=== PATIENT | male | born 1945 | race Caucasian/White ===

== ENCOUNTER 2017-01-01 16:23 | Inpatient (IN) | payer MEDICARE, OTHER ==
[~2017-01-01] VITALS: Ht 167.6 cm; Wt 90.2 kg
[2017-01-01 17:18] LABS: Basophils # (auto) 0 uL; Basophils % (auto) 0.6 % (0.0-2.0); CONDITION Y; Eosinophils # (auto) 0.1 uL; Eosinophils % (auto) 1.9 % (0.0-7.0); Hematocrit 51.7 % (41.0-53.0); Hemoglobin 17.2 g/dL (13.5-17.5); Lymphocytes # (auto) 1.5 uL; Lymphocytes % (auto) 18.5 % (10.0-50.0); Mean Corpuscular Hemoglobin 31.1 pg (28.0-32.0); Mean Corpuscular Hgb Conc. 33.3 g/dL (32.0-36.0); Mean Corpuscular Volume 93.4 fL (80.0-100.0); Mean Platelet Volume 7.7 fL (7.4-10.4); Monocytes # (auto) 0.7 uL; Monocytes % (auto) 9.2 % (0.0-12.0); Neutrophils # (auto) 5.6 uL; Neutrophils % (auto) 69.8 % (37.0-80.0); Platelet Count (auto) 215 10^3/uL (140-450); Red Cell Distribution Width 13.9 % (11.6-16.0); White Blood Cell 8.1 10^3/uL (4.4-10.8)
[2017-01-01 17:35] LABS: Anion Gap 12 (5-15); Aspartate Aminotransferase 36 U/L (15-37); BUN/Creatinine Ratio 18.3; Blood Urea Nitrogen 24 mg/dL (7-18); Calcium 8.8 mg/dL (8.5-10.1); Carbon Dioxide 23 mmol/L (21-32); Chloride 110 mmol/L (98-107); GFR African American 69 mL/min; GFR Non-African American 57 mL/min; Glucose 83 mg/dL (74-106); Magnesium 2.5 mg/dL (1.6-2.6); Potassium 3.8 mmol/L (3.5-5.1); Sodium 145 mmol/L (136-145)
[2017-01-01 17:40] LABS: Alkaline Phosphatase 72 U/L (45-117); Bilirubin, Total 0.3 mg/dL (0.2-1.0); Total Protein 7.7 g/dL (6.4-8.2)
[2017-01-01] MEDS ORDERED: MORPHINE SULFATE 4 MG/ML SYRG IV ONE (17:45)
[2017-01-01] MEDS ORDERED: ONDANSETRON HCL 4 MG/2 ML VIAL IV ONE (17:45)
[2017-01-01] MEDS ORDERED: NITROGLYCERIN 0.4 MG SL TAB SL PRN (18:00)
[2017-01-01] MEDS ORDERED: MORPHINE SULF INJ 2 MG/ML SYRINGE 1ML IV PRN ×2 (18:00→18:45)
[2017-01-01] MEDS ORDERED: TEMAZEPAM 15 MG CAP PO PRN (18:45)
[2017-01-01] MEDS ORDERED: HYDROcodone-ACET 5/325MG TAB PO PRN (18:45)
[2017-01-01] MEDS ORDERED: LORazepam 0.5 MG TAB PO PRN (18:45)
[2017-01-01] MEDS ORDERED: LACTULOSE 20Gm/30ML SOLN PO PRN (18:45)
[2017-01-01] MEDS ORDERED: ONDANSETRON HCL 4 MG/2 ML VIAL IV PRN (18:45)
[2017-01-01] MEDS: TAMSULOSIN HYDROCHLORIDE 0.4 MG CAP PO SCH (18:54)
[2017-01-01 19:03] LABS: Temperature: 22.7 C (20.0-25.0)
[2017-01-01 19:11] LABS: Cholesterol 154 mg/dL (< 200); HDL Cholesterol 34 mg/dL (40-59); LDL Cholesterol 96 mg/dL (< 100); Triglycerides 312 mg/dL (< 150)
[2017-01-01] MEDS ORDERED: ASPirin 81 mg TAB PO ONE (19:15)
[2017-01-01 19:19] LABS: INR 1.05 (0.9-1.15); Partial Thromboplastin Time 24.5 sec (22.64-33.71); Prothrombin Time 11.4 sec (9.37-12.3)
[2017-01-01 20:40] VITALS: BP 117/58
[2017-01-01] MEDS: ATORVASTATIN 20 MG TAB PO SCH (21:17)
[2017-01-01] MEDS: METOPROLOL TARTRATE 25 MG TAB PO SCH (21:19)
[2017-01-01 22:00] VITALS: BP 117/58
[2017-01-01] MEDS ORDERED: PRAZOSIN HCL 1 MG CAP PO ONE (22:00)
[2017-01-01] MEDS ORDERED: HYDR-4663 PO (23:49)
[2017-01-01] MEDS ORDERED: SERT-274 PO (23:49)
[2017-01-01] MEDS ORDERED: LISI40TA PO (23:49)
[2017-01-01] MEDS ORDERED: TRIA0.1P11 TOP (23:49)
[2017-01-01] MEDS ORDERED: METO-158 PO (23:49)
[2017-01-01] MEDS ORDERED: FINA5TAB4 PO (23:49)
[2017-01-01] MEDS ORDERED: PRA1C PO (23:49)
[2017-01-01] MEDS ORDERED: TAMS0.4C36 PO (23:49)
[2017-01-01] MEDS ORDERED: METH750T3 PO (23:49)
[2017-01-01] MEDS ORDERED: HYDR12.56 PO (23:49)
[2017-01-01] MEDS ORDERED: SIMV-13 PO (23:49)
[2017-01-02] VITALS (7 sets, daily range): BP systolic 81–122; BP diastolic 52–74
[2017-01-02 06:58] LABS: Anion Gap 10 (5-15); BUN/Creatinine Ratio 19.5; Blood Urea Nitrogen 29 mg/dL (7-18); Calcium 8.3 mg/dL (8.5-10.1); Carbon Dioxide 27 mmol/L (21-32); Chloride 106 mmol/L (98-107); GFR African American 60 mL/min; GFR Non-African American 49 mL/min; Glucose 91 mg/dL (74-106); Potassium 3.3 mmol/L (3.5-5.1); Sodium 143 mmol/L (136-145)
[2017-01-02 07:35] LABS: Urine Bilirubin Negative (Negative); Urine Blood Negative /uL (Negative); Urine Color Yellow (Yellow); Urine Glucose Normal (Normal); Urine Hyaline Cast MANY /lpf (0 - 2); Urine Ketone TRACE (Negative); Urine Mucus FEW (None Seen); Urine Nitrite Negative (Negative); Urine RBC 1 /hpf (0 - 3); Urine Squamous Epithelial Cell FEW /hpf (<5); Urine Urobilinogen Normal (Negative); Urine pH 5.5 (5.0-8.0)
[2017-01-02] MEDS: LISINOPRIL 20 MG TAB PO SCH (10:00)
[2017-01-02] MEDS: METOPROLOL TARTRATE 25 MG TAB PO SCH ×2 (10:00→21:43)
[2017-01-02] MEDS: ASPirin 81 mg TAB PO SCH (10:57)
[2017-01-02] MEDS: FINASTERIDE 5 MG TAB PO SCH (10:57)
[2017-01-02] MEDS: HCTZ 25 MG TAB PO SCH (10:57)
[2017-01-02] MEDS: SERTRALINE HCL 50 MG TAB PO SCH (10:57)
[2017-01-02] MEDS ORDERED: POTASSIUM CHL 10% (20 MEQ/15ML) 15ml ORAL SOLN PO ONE (13:00)
[2017-01-02] MEDS: SODIUM CHLORIDE 0.9% 1,000 ML IV SCH (13:15)
[2017-01-02] MEDS ORDERED: ADENOSINE 76 MG in GIVE UN-DILUTED 0 ML IV ONE (14:00)
[2017-01-02] MEDS: TAMSULOSIN HYDROCHLORIDE 0.4 MG CAP PO SCH (17:44)
[2017-01-02] MEDS: ATORVASTATIN 20 MG TAB PO SCH (21:43)
[2017-01-03] MEDS: SODIUM CHLORIDE 0.9% 1,000 ML IV SCH (02:34)
[2017-01-03 05:00] VITALS: BP 120/76
[2017-01-03 08:00] VITALS: BP 124/83
[2017-01-03 08:50] VITALS: BP 124/83
[2017-01-03] MEDS: METOPROLOL TARTRATE 25 MG TAB PO SCH (09:48)
[2017-01-03] MEDS: FINASTERIDE 5 MG TAB PO SCH (09:49)
[2017-01-03] MEDS: LISINOPRIL 20 MG TAB PO SCH (09:49)
[2017-01-03] MEDS: HCTZ 25 MG TAB PO SCH (09:50)
[2017-01-03] MEDS: ASPirin 81 mg TAB PO SCH (09:50)
[2017-01-03] MEDS: SERTRALINE HCL 50 MG TAB PO SCH (09:50)
[2017-01-03 11:11] VITALS: BP 124/83
== END 2017-01-03 13:36 | disposition home or self-care (01) | DRG 195 ==
LOC: EDBD 16:23 → ER 16:32 → TELE 16:33 → TELE-EAST 20:21
PROVIDERS: ADMIT Nurse Practitioner Family; ATTEND Internal Medicine
DX: R09.1 Pleurisy (principal); N18.3 Chronic kidney disease, stage 3 (moderate); I12.9 Hypertensive chronic kidney disease with stage 1 through stage 4 chronic kidney disease, or unspecified chronic kidney disease; I25.10 Atherosclerotic heart disease of native coronary artery without angina pectoris; F32.9 Major depressive disorder, single episode, unspecified; E78.5 Hyperlipidemia, unspecified; E66.9 Obesity, unspecified; G89.29 Other chronic pain; N40.0 Benign prostatic hyperplasia without lower urinary tract symptoms; E87.6 Hypokalemia; F41.9 Anxiety disorder, unspecified; K21.9 Gastro-esophageal reflux disease without esophagitis; M54.5 Low back pain; Z87.891 Personal history of nicotine dependence; Z68.32 Body mass index [BMI] 32.0-32.9, adult
CPT/HCPCS: 36415; 71020; 80048; 80053; 80061; 81001; 82550; 83735; 83880; 84484; 85025; 85379; 85610; 85652; 85730; 93005; 93017; 96374; 96375; 99291; J0153; J2405